=== PATIENT | female | born 1990 | race Caucasian/White ===

== ENCOUNTER 2023-04-07 01:51 | Emergency (ER) | payer OTHER ==
[~2023-04-07] VITALS: Ht 167.6 cm; Wt 70.0 kg
[2023-04-07] MEDS ORDERED: LORAZEPAM 2MG/ML CPJ IV STA (03:15)
[2023-04-07] MEDS ORDERED: SODIUM CHLORIDE 0.9% 1,000 ML IV ONE (03:15)
[2023-04-07 04:34] LABS: BASOPHILS % 0.3 % (0.0-2.0); EOSINOPHILS % 0.1 % (0.0-5.0); HEMATOCRIT. 39.4 % (36.0-48.0); HEMOGLOBIN. 13.4 g/dL (12.0-16.0); LYMPHOCYTES % 9.8 % (20.0-50.0); MEAN CORPUSCULAR HEMOGLOBIN 29.2 pg (28.0-32.0); MEAN CORPUSCULAR VOLUME 85.9 fL (81.0-99.0); MEAN PLATELET VOLUME 9.6 fl (7.4-10.4); MONOCYTES % 10.3 % (2.0-8.0); NEUTROPHILS % 79.5 % (40.0-76.0); PLATELET 229 x1000/uL (130-400); RED BLOOD CELL COUNT 4.58 mill/uL (4.2-5.4); RED CELL DISTRIBUTION WIDTH 14.7 % (11.6-14.6)
[2023-04-07 04:46] LABS: CHLORIDE 108 mEq/L (98-107)
[2023-04-07 04:51] LABS: HCG SCREEN NEGATIVE
[2023-04-07 04:54] LABS: ETHANOL BLOOD < 10 mg/dL (-10)
[2023-04-07] MEDS ORDERED: LORAZEPAM 2MG/ML CPJ IV SCH (05:15)
[2023-04-08 04:29] LABS: CLARITY URINE CLOUDY (CLEAR); COLOR URINE YELLOW (YELLOW); KETONES URINE 3+ (NEGATIVE); LEUKOCYTE ESTERASE URINE 2+ (NEGATIVE); NITRITE URINE NEGATIVE (NEGATIVE); OCCULT BLOOD URINE NEGATIVE (NEGATIVE); PH URINE 5.5 (4.5-8.0); PROTEIN URINE 2+ (NEGATIVE); SPECIFIC GRAVITY URINE 1.028 (1.005-1.030)
[2023-04-08 04:37] LABS: *AMPHETAMINES SCREEN URINE NEGATIVE (NEGATIVE); *BARBITURATES SCREEN URINE NEGATIVE (NEGATIVE); *BENZODIAZEPINES SCREEN URINE NEGATIVE (NEGATIVE); *COCAINE SCREEN URINE NEGATIVE (NEGATIVE); CANNABINOID URINE SCREEN NEGATIVE (NEGATIVE); METHADONE URINE SCREEN NEGATIVE (NEGATIVE); OPIATES URINE SCREEN NEGATIVE (NEGATIVE); PHENCYCLIDINE URINE SCREEN NEGATIVE (NEGATIVE)
[2023-04-08] MEDS: LAMOTRIGINE 25MG TABLET PO SCH (21:00)
[2023-04-09] MEDS: LAMOTRIGINE 25MG TABLET PO SCH ×2 (09:00→21:00)
[2023-04-09] MEDS: CEPHALEXIN 250MG CAPSULE PO SCH ×2 (20:00→21:00)
[2023-04-10] MEDS: LAMOTRIGINE 25MG TABLET PO SCH ×3 (09:00→17:24)
[2023-04-10] MEDS: CEPHALEXIN 250MG CAPSULE PO SCH ×4 (09:00→21:30)
[2023-04-11] MEDS: CEPHALEXIN 250MG CAPSULE PO SCH (09:00)
[2023-04-11] MEDS ORDERED: CEPH500T PO (09:29)
[2023-04-11] MEDS: LAMOTRIGINE 25MG TABLET PO SCH (09:47)
[2023-04-11 11:51] VITALS: BP 124/76; PULSE 84; RESP 16; TEMP 97.9; O2SAT 99
== END 2023-04-11 12:01 | disposition home or self-care (01) ==
LOC: EDBD 02:23 → ER 02:23
DX: R45.6 Violent behavior (principal); Z20.822 Contact with and (suspected) exposure to COVID-19
CPT/HCPCS: 80053; 80305; 81003; 81025; 80307; 80329; 80320; 84703; 85025; 84484; 36415; 70450; 93005; 96374; 99285; 87426; J2060; J7030; C9803; G0480